=== PATIENT | female | born 1990 ===

== ENCOUNTER 2022-04-08 09:27 | Outpatient (CLI) | payer OTHER ==
[~2022-04-08 09:27] MED LIST: PRENATAL 19 TA1 EACH PO
== END 2022-04-08 11:00 | disposition home or self-care (01) ==
LOC: PRENATAL 09:27
PROVIDERS: ATTEND Obstetrics & Gynecology Maternal & Fetal Medicine
DX: O35.0XX0 Maternal care for (suspected) central nervous system malformation in fetus, not applicable or unspecified (principal); O35.3XX0 Maternal care for (suspected) damage to fetus from viral disease in mother, not applicable or unspecified; O28.1 Abnormal biochemical finding on antenatal screening of mother; O34.219 Maternal care for unspecified type scar from previous cesarean delivery; Z3A.20 20 weeks gestation of pregnancy

== ENCOUNTER 2022-07-01 08:51 | Outpatient (CLI) | payer OTHER | END 2022-07-01 10:15 | disposition home or self-care (01) | LOC: PRENATAL 08:51 | PROVIDERS: ATTEND Obstetrics & Gynecology Maternal & Fetal Medicine | DX: O26.849 Uterine size-date discrepancy, unspecified trimester (principal); O02.81 Inappropriate change in quantitative human chorionic gonadotropin (hCG) in early pregnancy; O34.219 Maternal care for unspecified type scar from previous cesarean delivery; O36.8199 Decreased fetal movements, unspecified trimester, other fetus ==

== ENCOUNTER 2022-08-06 10:00 | Inpatient (IN) | payer OTHER ==
[~2022-08-06] VITALS: Ht 157.5 cm; Wt 77.6 kg
[2022-08-06] MEDS ORDERED: FOLIC PO (11:40)
[2022-08-11] MEDS ORDERED: FOLIC ACID0.8 M1 PO (11:55)
== END 2022-08-13 14:36 | disposition home or self-care (01) | DRG 785 ==
LOC: O/R 08-11 06:12 → OB/GYN 08-11 07:00
PROVIDERS: ADMIT Obstetrics & Gynecology; ATTEND Obstetrics & Gynecology
PROC: 0UB70ZZ Excision of Bilateral Fallopian Tubes, Open Approach (ICD-10-PCS; 2022-08-11)
PROC: 4A1HXCZ Monitoring of Products of Conception, Cardiac Rate, External Approach (ICD-10-PCS; 2022-08-11)
PROC: 10D00Z1 Extraction of Products of Conception, Low, Open Approach (ICD-10-PCS; principal; 2022-08-11 07:00)
DX: O34.211 Maternal care for low transverse scar from previous cesarean delivery (principal); O99.820 Streptococcus B carrier state complicating pregnancy; Z3A.38 38 weeks gestation of pregnancy; Z37.0 Single live birth; Z30.2 Encounter for sterilization; Z20.822 Contact with and (suspected) exposure to COVID-19